=== PATIENT | male | born 2000 | race Caucasian/White ===

== ENCOUNTER 2018-06-14 18:34 | Emergency (ER) | payer SELFPAY, OTHER ==
[2018-06-14] MEDS: IBUPROFEN 800 MG TAB PO (19:06)
== END 2018-06-14 20:35 | disposition home or self-care (01) ==
LOC: FTE 18:34
DX: M25.562 Pain in left knee (principal); J45.909 Unspecified asthma, uncomplicated
CPT/HCPCS: 73562; 93971; 99283-25